=== PATIENT | female | born 1975 | race Caucasian/White ===

== ENCOUNTER 2019-11-08 08:58 | Outpatient (CLI) | payer BC, SELFPAY ==
--- NOTE | ~2019-11-08 | XR_ITS ---
EXAMINATION: XR chest 2V DATE: 11/08/2019 09:16 INDICATION: Pneumothorax. TECHNIQUE: Frontal and lateral views of the chest were obtained. COMPARISON: CT abdomen and pelvis 08/18/2013 FINDINGS: A calcified right lung nodule and calcified right hilar lymph nodes are consistent with old granulomatous disease. No pleural effusion or pneumothorax. The heart size is normal. Surgical clips in the right upper quadrant are likely from cholecystectomy. IMPRESSION: 1. No acute cardiopulmonary disease. Reviewed, dictated and finalized at location A.
== END 2019-11-08 08:59 | disposition home or self-care (01) ==
PROVIDERS: PCP Family Medicine; Visit Provider Family Medicine
DX: J93.9 Pneumothorax, unspecified (principal); J94.2 Hemothorax; S22.49XA Multiple fractures of ribs, unspecified side, initial encounter for closed fracture
CPT/HCPCS: 71046

== ENCOUNTER 2019-12-08 06:48 | Outpatient (NON) | payer BC, SELFPAY ==
[2019-12-08 19:10] LABS: SARS-CoV-2 RNA PCR Negative
== END 2019-12-08 06:49 ==
PROVIDERS: Visit Provider Family Medicine
DX: Z11.59 Encounter for screening for other viral diseases (principal)
CPT/HCPCS: 87635; C9803; U0003

== ENCOUNTER → 2019-12-29 10:13 | Outpatient (CLI) | payer BC, SELFPAY ==
--- NOTE | ~2019-12-29 | XR_ITS ---
EXAMINATION: XR foot LT min 3V DATE: 12/29/2019 10:27 INDICATION: Left foot pain. TECHNIQUE: 4 views of left foot were obtained. COMPARISON: None. FINDINGS: Bone alignment is normal. No fracture. There is mild osteoarthritis of first metatarsophala ngeal joint. There are enthesophytes at the posterior and plantar aspects of calcaneal tuberosity. IMPRESSION: 1. Mild osteoarthritis of first metatarsophalangeal joint. Reviewed, dictated and finalized at location B.
== END ==
PROVIDERS: PCP Family Medicine; Visit Provider Family Medicine
DX: M79.672 Pain in left foot (principal); M19.072 Primary osteoarthritis, left ankle and foot
CPT/HCPCS: 73630

== ENCOUNTER 2020-05-14 14:49 | Emergency (ER) | payer BC, MEDICAID, SELFPAY ==
--- NOTE | ~2020-05-14 | CT_ITS ---
EXAMINATION: CT abdomen pelvis w con DATE: 05/14/2020 16:50 INDICATION: Right lower quadrant abdominal pain. TECHNIQUE: Computed tomography (CT) of the abdomen and pelvis was performed with 100 mL Omnipaque 350 intravenous contrast. Automated exposure control and iterative reconstruction technique were employe d. The dose-length product was 1420.68 mGy-cm. COMPARISON: CT abdomen and pelvis 08/18/13 FINDINGS: The visualized portions of the lung bases demonstrate mild atelectasis. Calcified pulmonary nodules are consistent with old granulomatous disease. No pleural effusion. The heart size is normal . No pericardial effusion. The liver and spleen are normal. There are changes of cholecystectomy. The pancreas and adrenal glands are normal. There is cortical thinning of the kidneys. There are no dila cresencio loops of bowel. The appendix is normal. There are no pathologically enlarged lymph nodes. There i s no free intraperitoneal fluid. There is a dominant follicle in right ovary. There is mild thoracolu mbar spondylosis. Lumbar dextroscoliosis is noted. IMPRESSION: 1. No specific etiology for the patient's symptoms. Reviewed, dictated and finalized at location A. [employer]
[2020-05-14 15:38] VITALS: BP 129/92; PULSE 105; RESP 14; TEMP 36.1; O2SAT 99
[2020-05-14 15:58] LABS: Basophils Percent Auto 0.6 % (0.2-1.2); Eosinophils Absolute Auto 0.1 K/mm3 (0-0.3); Eosinophils Percent Auto 1.4 % (0-4.4); Hemoglobin 15.3 g/dL (12.0-15.0); Immature Granulocyte Absolute 0.06 K/mm3 (0.00-0.031); Immature Granulocyte Percent A 1.2 % (0-0.5); Lymphocytes Absolute Auto 1.79 K/mm3 (0.9-3.2); Lymphocytes Percent Auto 34.6 % (18.3-44.2); Mean Corpuscular HGB Conc 33.3 g/dl (32-36); Mean Corpuscular Hemoglobin 31.5 pg (26-34); Mean Corpuscular Volume 94.7 fl (80-100); Mean Platelet Volume 12.3 fl (7.4-10.4); Monocytes Absolute Auto 0.5 K/mm3 (0.1-0.6); Monocytes Percent Auto 9.9 % (2.6-8.5); Neutrophils Absolute Auto 2.7 K/mm3 (1.3-6.7); Neutrophils Percent Auto 52.3 % (45.5-73.1); Platelet Count Result 192 k/mm3 (150-375); Red Blood Count 4.86 M/mm3 (4.2-5.4); Red Cell Distribution Width 14.3 % (11.5-14.5); White Blood Count 5.2 K/mm3 (4.5-10.0)
[2020-05-14 16:14] LABS: Alanine Aminotransferase 42 U/L (4-35); Albumin Level 4.3 g/dL (3.5-5.1); Alkaline Phosphatase 97 U/L (38-126); Anion Gap 6 mmol/L (8-16); Aspartate Amino Transferase 40 U/L (14-36); Bilirubin,Total 0.4 mg/dL (0.2-1.3); Blood Urea Nitrogen 18 mg/dL (7-17); Calcium 8.8 mg/dL (8.4-10.2); Carbon Dioxide 28 mmol/L (22-30); Chloride 101 mmol/L (98-107); Estimated CRCL calculation 61 ml/min; Estimated Glomerular Filt Rate 41; Glucose 95 mg/dL (65-105); Lipase 54 U/L (23-300); Potassium 3.9 mmol/L (3.4-5.0); Sodium 135 mmol/L (137-145)
--- NOTE | 2020-05-14 16:18 | ED.ABDPAIN ---
HPI - Abdominal Pain General Chief Complaint: Abdominal Pain Stated Complaint: covid pos/right abd pain Time Seen by Provider: 05/14/20 16:03 Source: patient Mode of arrival: ambulatory Limitations: no limitations History of Present Illness HPI narrative: A 44-year-old female presents to the emergency department with complaints of abdominal pain, nausea and vomiting. Patient states that she was diagnosed with Covid a week or so ago and is uncertain if this is being caused by Covid or something else. She does endorse pain localized to the right lower quadrant of her abdomen. She does state that she has been nauseated but only vomited once or twice. She states the vomit was nonbilious and nonbloody. Patient endorses fevers as well but notes that she has been taking Tylenol and ibuprofen for the Covid. Related Data Home Medications Medication Instructions Recorded Confirmed hydrochlorothiazide 25 mg tablet 25 mg PO DAILY 04/04/19 05/01/20 hyoscyamine sulfate 0.125 mg 0.125 mg SUBLINGUAL QID PRN 05/30/19 05/01/20 sublingual tablet Allergies Allergy/AdvReac Type Severity Reaction Status Date / Time No Known Allergies Allergy Mild Verified 05/14/20 16:12 Review of Systems Review of Systems: Narrative: CONSTITUTIONAL: Denies fever, chills, or sweats. EYES: Denies visual changes, redness, or discharge. ENT: Denies rhinorrhea, congestion, sore throat, or otalgia. CARDIOVASCULAR: Denies chest pain, palpitations, or edema. RESPIRATORY: Denies cough or dyspnea. GASTROINTESTINAL: Endorses abdominal pain, nausea, vomiting. GENITOURINARY: Denies dysuria or hematuria. SKIN: Denies rash or itching. MUSCULOSKELETAL: Denies back pain, joint pain, or myalgia. NEUROLOGIC: Denies headache, numbness, dizziness, or weakness. PSYCHIATRIC: Denies anxiety or depression. [facility] Past Medical History Medical History Chronic low back pain with right-sided sciatica Chronic right shoulder pain Concussion with loss of consciousness <= 30 min COVID-19 Cyst of brain Encounter for screening laboratory testing for COVID-19 virus Exposure to COVID-19 virus Fever blister Foot pain, left Hemothorax, right Morbid obesity with BMI of 45.0-49.9, adult Multiple rib fractures Pneumothorax, right Right hip pain Right knee pain UTI (urinary tract infection) Family History Family History Grandparent Acute myocardial infarction Family history of malignant neoplasm Family history of congestive heart failure Sibling Acute myocardial infarction, Onset Age: 6 Mother Family history of lung disease, Onset Age: 55 Social History Social History Smoking status: Never smoker Alcohol intake: current Exam Narrative: Exam Narrative: GENERAL: Well-appearing, well-nourished, and in no acute distress. HEAD: Normocephalic, atraumatic. EYES: PERRLA and EOMI. ENT: Nares clear, no rhinorrhea or epistaxis. Mucous membranes moist. Oropharynx without tonsillar hypertrophy exudate or other lesions. Bilateral TMs pearly harp nonbulging NECK: Supple. No adenopathy or masses. No carotid bruits or JVD CHEST: Clear to auscultation. No respiratory distress. No wheezes rales or rhonchi HEART: Regular rate and rhythm. No murmur heard. Normal peripheral pulses. ABDOMEN: Obese abdomen, right lower quadrant tenderness, McBurney's point tenderness, positive rebound, positive obturator and psoas sign. EXTREMITIES: Normal range of motion. No edema. SKIN: Warm, dry, no rash. NEURO: No focal deficits. Alert and oriented x3. PSYCH: Normal mood and affect. Course Vital Signs Vital signs: Vital Signs Temperature 36.1 C L 05/14/20 15:38 Pulse Rate 105 H 05/14/20 15:38 Respiratory Rate 14 05/14/20 15:38 Blood Pressure 129/92 H 05/14/20 15:38 Pulse Oximetry 99 05/14/20
[2020-05-14 16:20] LABS: Add Urine Microscopic? NO; Appearance Urine Clear (Clear); Bilirubin Urine Negative (Negative); Blood Urine Negative (Negative); Color Urine Yellow (Yellow); Glucose Urine UA Negative (Negative); Ketones Urine Negative (Negative); Leukocyte Esterase Ur Negative LEU/UL (Negative); Nitrate Urine Negative (Negative); Protein Urine Negative (Negative); Specific Grav Ur 1.016 (1.001-1.035); Urobilinogen Urine Negative mg/dL (<2.0)
[2020-05-14] MEDS: KETOROLAC 15 MG/ML VIAL (*BKC) IV PUSH (16:21)
[2020-05-14] MEDS: MORPHINE SULFATE (*CRX) 4 MG/ML INJ IV PUSH (16:21)
[2020-05-14 17:16] VITALS: BP 125/76; PULSE 90; RESP 18; O2SAT 100
== END 2020-05-14 17:18 | disposition home or self-care (01) ==
PROVIDERS: Emergency Medicine; Emergency Provider Emergency Medicine; PCP Family Medicine
DX: U07.1 COVID-19 (principal); R11.2 Nausea with vomiting, unspecified; R10.31 Right lower quadrant pain; Z87.440 Personal history of urinary (tract) infections; E66.01 Morbid (severe) obesity due to excess calories; Z68.41 Body mass index [BMI] 40.0-44.9, adult
CPT/HCPCS: 36415; 74177; 80053; 81003; 81025; 83690; 85025; 96374; 96375; 99284; J1885; J2270; Q9967

== ENCOUNTER 2020-07-16 16:45 | Outpatient (CLI) | payer BC, SELFPAY ==
[2020-07-16 17:03] LABS: Hematocrit 40.4 % (37.0-47.0); Hemoglobin 13.4 g/dL (12.0-15.0); Mean Corpuscular HGB Conc 33.2 g/dl (32-36); Mean Corpuscular Hemoglobin 31.5 pg (26-34); Mean Corpuscular Volume 94.8 fl (80-100); Mean Platelet Volume 12.1 fl (7.4-10.4); Platelet Count Result 183 k/mm3 (150-375); Red Blood Count 4.26 M/mm3 (4.2-5.4)
== END 2020-07-16 16:46 | disposition home or self-care (01) ==
LOC: ANHLAB 16:46
PROVIDERS: PCP Family Medicine; Visit Provider Nurse Practitioner
DX: R23.3 Spontaneous ecchymoses (principal)
CPT/HCPCS: 36415; 85027

== ENCOUNTER 2021-03-04 15:49 | Emergency (ER) | payer BC, SELFPAY ==
[2021-03-04 15:59] VITALS: BP 137/100; PULSE 73; RESP 18; TEMP 36.8; O2SAT 100
--- NOTE | 2021-03-04 16:28 | ED.GENADULT ---
HPI - General Adult General Chief complaint: Burn/Smoke Inhalation Stated complaint: Burn on finger History of Present Illness HPI narrative: This is a 45-year-old woman that presents to the urgent care for a burn from a glue gun making a custom patient states that she tried to wrap it up and put triple antibiotic ointment on it but today it continues to throb and hurt. Related Data Home Medications Medication Instructions Recorded Confirmed hydroxyzine HCl 03/04/21 03/04/21 Allergies Allergy/AdvReac Type Severity Reaction Status Date / Time No Known Allergies Allergy Mild Verified 03/04/21 16:24 Review of Systems Review of Systems: Right pointer finger with a second-degree burn painful and throbbing All other symptoms are unremarkable except for what was noted PMFSH Past Medical History Medical History (Updated 03/04/21 @ 16:38 by Renetta Parisi NP) Acute non-recurrent maxillary sinusitis Chronic low back pain with right-sided sciatica Chronic right shoulder pain Concussion with loss of consciousness <= 30 min COVID-19 Cyst of brain Encounter for screening laboratory testing for COVID-19 virus Exposure to COVID-19 virus Fever blister Foot pain, left Hemothorax, right Morbid obesity with BMI of 40.0-44.9, adult Morbid obesity with BMI of 45.0-49.9, adult Multiple rib fractures Pneumothorax, right Right hip pain Right knee pain UTI (urinary tract infection) Family History Family History Grandparent Acute myocardial infarction Family history of malignant neoplasm Family history of congestive heart failure Sibling Acute myocardial infarction, Onset Age: 6 Mother Family history of lung disease, Onset Age: 55 Social History Social History Smoking status: Never smoker Alcohol intake: current Comments At time as signature, I have reviewed and agree with nursing past medical, social, surgical and family history. Please see nursing chart for further information. There is no relevant family history pertinent to the presenting complaint. Exam Narrative: GENERAL:Well-appearing, well-nourished, and in no acute distress. HEAD:Normocephalic, atraumatic. EYES: PERRLA and EOMI. ENT: Nares clear, no rhinorrhea or epistaxis. Mucous membranes moist. NECK: Supple. CHEST: Clear to auscultation. No respiratory distress. HEART: Regular rate and rhythm. ABDOMEN: Soft, nontender, nondistended, normal active bowel sounds. EXTREMITIES: Normal range of motion. No edema. Right pointer finger second-degree burn right below the nailbed sloughing noted glue on the skin that has been removed SKIN: Warm, dry, no rash. NEURO: No focal deficits. Alert and oriented x3. Course Vital Signs Vital signs: Vital Signs Temperature 98.3 F 03/04/21 15:59 Pulse Rate 73 03/04/21 15:59 Respiratory Rate 18 03/04/21 15:59 Blood Pressure 137/100 H 03/04/21 15:59 Pulse Oximetry 100 03/04/21 15:59 Temperature 98.3 F 03/04/21 15:59 Pulse Rate 73 03/04/21 15:59 Respiratory Rate 18 03/04/21 15:59 Blood Pressure 137/100 H 03/04/21 15:59 Pulse Oximetry 100 03/04/21 15:59 Medical Decision Making [facility] Narrative Medical decision making narrative: Tetanus shot given Vital Signs Vital Signs: Vital Signs Temperature 98.3 F 03/04/21 15:59 Pulse Rate 73 03/04/21 15:59 Respiratory Rate 18 03/04/21 15:59 Blood Pressure 137/100 H 03/04/21 15:59 Pulse Oximetry 100 03/04/21 15:59 Temperature 98.3 F 03/04/21 15:59 Pulse Rate 73 03/04/21 15:59 Respiratory Rate 18 03/04/21 15:59 Blood Pressure 137/100 H 03/04/21 15:59 Pulse Oximetry 100 03/04/21 15:59 Discharge Plan Discharge Clinical Impression: Essential (primary) hypertension Burn of finger of right hand, second degree Qualifiers: Encounter type: initial encou
[2021-03-04] MEDS: TETANUS,DIPHTHERIA,AC PERTUSSIS ADULT (0.5 ML) BOOSTRIX IM (16:36)
[2021-03-04] MEDS: SILVER SULFADIAZINE 1% CR 50 GM JAR (*BKC) 1 APPLIC TOPICAL (16:38)
== END 2021-03-04 16:50 | disposition home or self-care (01) ==
PROVIDERS: Emergency Provider Nurse Practitioner Family; PCP Family Medicine
DX: T23.221A Burn of second degree of single right finger (nail) except thumb, initial encounter (principal); X17.XXXA Contact with hot engines, machinery and tools, initial encounter; Z23 Encounter for immunization; Z86.16 Personal history of COVID-19; E66.01 Morbid (severe) obesity due to excess calories; Z68.41 Body mass index [BMI] 40.0-44.9, adult
CPT/HCPCS: 16020; 90471; 90715; 99213; A9270; G0463

== ENCOUNTER 2021-05-13 15:30 | Emergency (ER) | payer BC, SELFPAY ==
--- NOTE | ~2021-05-13 | XR_ITS ---
EXAMINATION: XR foot LT min 3V EXAM DATE: 05/13/2021 16:27 INDICATION: Left foot pain dorsally. Initial encounter. TECHNIQUE: Left foot dorsoplantar, lateral and oblique projections obtained and reviewed. Comparison is made to prior examination from 12/29/2019. FINDINGS: Left metatarsal bones unremarkable. Small posterior, inferior calcaneal spurs. There are no acute fractures or dislocations identified. There is no subcutaneous gas. The soft tissue is un remarkable. There are no radiopaque foreign bodies. IMPRESSION: 1. XR foot LT min 3V exam without acute osseous findings. Reviewed, dictated and finalized at location A. SORTER
[2021-05-13 16:06] VITALS: BP 110/74; PULSE 87; RESP 18; TEMP 37.6; O2SAT 98
--- NOTE | 2021-05-13 16:44 | ED.LOWEXIN ---
HPI - Extremity Injury (Lower) General Chief Complaint: Extremity Injury, Lower Stated Complaint: left foot pain Time Seen by Provider: 05/13/21 16:43 Source: patient Mode of arrival: ambulatory Limitations: no limitations History of Present Illness HPI Narrative: 45-year-old female presented for complaint of left foot pain, onset yesterday after injury when a stool fell on her foot. Has been icing and elevating and taking ibuprofen but states the swelling has increased. Related Data Home Medications Medication Instructions Recorded Confirmed hydroxyzine HCl 03/04/21 03/04/21 galcanezumab-gnlm [Emgality Pen] 2 mg SUBCUT DIRECTED 05/13/21 05/13/21 Allergies Allergy/AdvReac Type Severity Reaction Status Date / Time No Known Allergies Allergy Mild Verified 05/13/21 16:14 Review of Systems Review of Systems: CONSTITUTIONAL: Denies body aches, fever, chills, or sweats. EYES: Denies visual changes, redness, or discharge. CARDIOVASCULAR: Denies chest pain, palpitations, or edema. RESPIRATORY: Denies cough or dyspnea. GASTROINTESTINAL: Denies abdominal pain, nausea, vomiting, or diarrhea. GENITOURINARY: Denies dysuria or hematuria. SKIN: Denies rash, itching, or wounds. MUSCULOSKELETAL: Endorses left foot pain/swelling. Denies back pain, joint pain, or myalgia. NEUROLOGIC: Denies headache, numbness, tingling, or weakness. PSYCH: Denies depression or anxiety. [facility] Past Medical History Medical History Acute non-recurrent maxillary sinusitis Chronic low back pain with right-sided sciatica Chronic right shoulder pain Concussion with loss of consciousness <= 30 min COVID-19 Cyst of brain Encounter for screening laboratory testing for COVID-19 virus Exposure to COVID-19 virus Fever blister Foot pain, left Hemothorax, right Morbid obesity with BMI of 40.0-44.9, adult Morbid obesity with BMI of 45.0-49.9, adult Multiple rib fractures Pneumothorax, right Right hip pain Right knee pain UTI (urinary tract infection) Family History Family History Grandparent Acute myocardial infarction Family history of malignant neoplasm Family history of congestive heart failure Sibling Acute myocardial infarction, Onset Age: 6 Mother Family history of lung disease, Onset Age: 55 Social History Social History Smoking status: Never smoker Alcohol intake: current Comments At time of signature, I have reviewed and agree with nursing past medical, surgical, social and family history unless otherwise noted. Please see nursing chart for further information. There is no relevant family history pertinent to the presenting complaint Exam Narrative: GENERAL: Well-appearing, well-nourished, and in no acute distress. HEAD: Normocephalic, atraumatic. EYES: EOMI. No redness or drainage. Conjunctivae normal. NECK: Normal AROM. Supple. CHEST: No respiratory distress. Clear to auscultation. HEART: Regular rate and rhythm. No murmur appreciated. Normal peripheral pulses. ABDOMEN: Soft, nontender, nondistended, normal active bowel sounds. MUSCULOSKELETAL: left foot contusion dorsal surface, PPP, pain with light palpation EXTREMITIES: Normal range of motion. No edema. SKIN: Warm, dry, no rash. Capillary refill normal. Normal skin turgor. NEURO: No focal deficits. Alert and oriented x3. Gait steady. PSYCH: Normal affect. No signs of depression or anxiety. Course Course Emergency Course: xray Reviewed with patient Patient is aware of diagnosis, understands and agrees to treatment plan. Anticipatory guidance given. Patient agrees to follow-up as directed and is aware of reasons to seek care at the emergency department. Portions of this record may have been created with voice recognition software Level of Care: Scancell
== END 2021-05-13 16:54 | disposition home or self-care (01) ==
PROVIDERS: Emergency Provider Nurse Practitioner Family; PCP Family Medicine
DX: S90.32XA Contusion of left foot, initial encounter (principal); W20.8XXA Other cause of strike by thrown, projected or falling object, initial encounter; Z86.16 Personal history of COVID-19; E66.01 Morbid (severe) obesity due to excess calories; Z68.41 Body mass index [BMI] 40.0-44.9, adult
CPT/HCPCS: 73630; 99213; G0463

== ENCOUNTER → 2021-07-03 11:16 | Outpatient (CLI) | payer BC, SELFPAY ==
--- NOTE | ~2021-07-03 | XR_ITS ---
XR knee LT 3V 07/03/2021 11:29 INDICATION: Left knee pain PROCEDURE: 3 views left knee COMPARISON: No prior studies for comparison. FINDINGS: Fracture, dislocation or subluxation is not identified. Small joint effusion. The soft tiss ues appear within normal limits. No foreign bodies are identified. IMPRESSION: 1: Small joint effusion. Reviewed, dictated and finalized at location A. DIRECTOR IMPRESSION: 1: Small joint effusion.
== END ==
PROVIDERS: PCP Family Medicine; Visit Provider Family Medicine
DX: M25.562 Pain in left knee (principal); M25.462 Effusion, left knee
CPT/HCPCS: 73562

== ENCOUNTER 2021-11-11 00:27 | Day surgery (SDC) | payer BC, OTHER, SELFPAY ==
--- NOTE | 2021-11-11 08:31 | WPDANESEPPF ---
Anes - Initial Pre Proc Eval Procedure: Operation Date: 11/11/21 10:30 Proposed Procedures p Screening Colonoscopy - Yogi Ignacio MD Date/Time: 11/11/21 08:31 Surgeon: Yogi Ignacio MD Pre Op Diagnosis: neoplasm screening Patient Data Age: 46 Gender: F Height: Weight: Allergies Allergy/AdvReac Type Severity Reaction Status Date / Time No Known Allergies Allergy Mild Verified 11/11/21 08:59 Home Medications Medication Instructions Recorded Confirmed Type topiramate 50 mg tablet (Topamax) 50 mg PO BID #60 tabs 04/22/21 11/11/21 Rx galcanezumab-gnlm 120 mg/mL 2 mg subcut DIRECTED 05/13/21 11/11/21 History subcutaneous pen injector (Emgality Pen) meloxicam 15 mg tablet 15 mg PO DAILY PRN pain #90 tabs 05/20/21 11/11/21 Rx folic acid 1 mg tablet 1 mg PO DAILY 07/03/21 11/11/21 History sertraline 100 mg tablet 100 mg PO . b.i.d. #180 tabs 07/03/21 11/11/21 Rx sumatriptan succinate 100 mg tablet See Rx Instructions PO .COMPLEX 07/03/21 11/11/21 History cyclobenzaprine 5 mg tablet 5 mg PO TID PRN Muscle Spasticity 07/10/21 11/11/21 History ondansetron HCl 8 mg tablet 8 mg PO Q8H PRN nausea and 07/10/21 11/11/21 Rx vomiting #30 tabs allopurinol 300 mg tablet 300 mg PO BID #180 tabs 08/05/21 11/11/21 Rx zolpidem 10 mg tablet (Ambien) 10 mg PO . Q.h.s. PRN insomnia 08/16/21 11/11/21 Rx #90 tabs metoprolol tartrate 50 mg tablet 50 mg PO Q12H #180 tabs 10/10/21 11/11/21 Rx Patient hx anesthesia problems: none Family hx anesthesia problems: none Results Review: All pre-operative results and documents have been reviewed as part of the pre-operative evaluation. [facility] Past Medical History Medical History (Updated 11/11/21 @ 08:31 by Adam Mckeon DO) Acute non-recurrent maxillary sinusitis Anxiety Breast cancer screening by mammogram normal mammogram 06/13/2021 Chronic low back pain with right-sided sciatica Chronic pain of left knee (~06/2021) X-ray on 07/03/2021 with small joint effusion but otherwise negative. Chronic right shoulder pain Collapse of right lung Concussion with loss of consciousness <= 30 min COVID-19 (~05/12/20) COVID-19 (05/20/21) 2nd episode testing positive 05/21/2021 Cyst of brain Depression Encounter for screening laboratory testing for COVID-19 virus Exposure to COVID-19 virus Fever blister Folic acid deficiency (03/16/21) level low at 4.7 on 03/16/2021 Foot pain, left Hemothorax, right Mild renal insufficiency (03/16/21) BUN 24 with creatinine 1.36 with GFR 47 on 03/16/2021 Mixed hyperlipidemia (03/16/21) total cholesterol 231, triglycerides 88, HDL 64, LDL 148 on 03/16/2021 Morbid obesity with BMI of 40.0-44.9, adult Morbid obesity with BMI of 45.0-49.9, adult Multiple rib fractures Pneumothorax, right Right hip pain Right knee pain UTI (urinary tract infection) Surgical History Surgical History History of History of partial hysterectomy History of tonsillectomy Hx of cholecystectomy Family History Family History Grandparent Acute myocardial infarction Family history of malignant neoplasm Family history of congestive heart failure Sibling Acute myocardial infarction, Onset Age: 6 Mother Family history of lung disease, Onset Age: 55 Hypertension Father Asthma Hypertension Daughter Family history of leukemia Other Heart disease Social History Social History Smoking status: Never smoker Alcohol intake: current Drinks per week: 2 Substance use: never Substance use type: does not use Living arrangements: with family Additional occupation/education comments: Building Aide Gender identity (if verbalized by the patient): Female Spiritual care concerns: No
[2021-11-11 08:59] VITALS: BMI 45.9
[2021-11-11 09:00] VITALS: BP 120/68; PULSE 81; RESP 18; TEMP 36.3; O2SAT 98
[2021-11-11] MEDS: LACTATED RINGERS 1,000 ML 150 ML IV CONT (09:02)
--- NOTE | 2021-11-11 09:37 | PM.HPGS ---
History of Present Illness History of Present Illness Consent: Risks, benefits, and alternatives have been discussed and questions answered. Patient agrees to proceed with procedure. Chief complaint: neoplasm screening Narrative: Brianne Caldwell is a 46 year old female here for first screening colonoscopy Review of Systems Constitutional: Constitutional: Denies headache(s) and Denies weakness Eyes: Eyes: Denies blurry vision ENT: Reports Normal hearing present, Denies headache(s) and Denies neck pain Cardiovascular: Cardiovascular: Denies chest pain and Denies dyspnea Respiratory: Respiratory: Denies dyspnea Gastrointestinal: Gastrointestinal: Reports no additional gastrointestinal complaints Genitourinary: Genitourinary: Denies dysuria Musculoskeletal: Musculoskeletal: Denies neck pain Integumentary/Breasts: Skin/Breast: Denies dry skin Neurologic: Reports Normal hearing present, Denies headache(s) and Denies weakness Psychiatric: Psychiatric: Denies anxiety Endocrine: Endocrine: Denies change in body appearance Hematologic/Lymphatic: Hematologic/Lymphatic: Denies easy bleeding Allergic/Immunologic: Allergic/Immunologic: Denies urticaria [facility] Past Medical History Medical History (Updated 11/11/21 @ 09:38 by Yogi Ignacio MD) Acute non-recurrent maxillary sinusitis Anxiety Breast cancer screening by mammogram normal mammogram 06/13/2021 Chronic low back pain with right-sided sciatica Chronic pain of left knee (~06/2021) X-ray on 07/03/2021 with small joint effusion but otherwise negative. Chronic right shoulder pain Collapse of right lung Colon cancer screening Concussion with loss of consciousness <= 30 min COVID-19 (~05/12/20) COVID-19 (05/20/21) 2nd episode testing positive 05/21/2021 Cyst of brain Depression Encounter for screening laboratory testing for COVID-19 virus Exposure to COVID-19 virus Fever blister Folic acid deficiency (03/16/21) level low at 4.7 on 03/16/2021 Foot pain, left Hemothorax, right Mild renal insufficiency (03/16/21) BUN 24 with creatinine 1.36 with GFR 47 on 03/16/2021 Mixed hyperlipidemia (03/16/21) total cholesterol 231, triglycerides 88, HDL 64, LDL 148 on 03/16/2021 Morbid obesity with BMI of 40.0-44.9, adult Morbid obesity with BMI of 45.0-49.9, adult Multiple rib fractures Pneumothorax, right Right hip pain Right knee pain UTI (urinary tract infection) Surgical History Surgical History History of History of partial hysterectomy History of tonsillectomy Hx of cholecystectomy Family History Family History Grandparent Acute myocardial infarction Family history of malignant neoplasm Family history of congestive heart failure Sibling Acute myocardial infarction, Onset Age: 6 Mother Family history of lung disease, Onset Age: 55 Hypertension Father Asthma Hypertension Daughter Family history of leukemia Other Heart disease Social History Social History Smoking status: Never smoker Alcohol intake: current Drinks per week: 2 Substance use: never Substance use type: does not use Living arrangements: with family Additional occupation/education comments: Building Aide Gender identity (if verbalized by the patient): Female Spiritual care concerns: No Meds Home Medications and Allergies Home Medications Medication Instructions Recorded Confirmed Type topiramate 50 mg tablet (Topamax) 50 mg PO BID #60 tabs 04/22/21 11/11/21 Rx galcanezumab-gnlm 120 mg/mL 2 mg subcut DIRECTED 05/13/21 11/11/21 History subcutaneous pen injector (Emgality Pen) meloxicam 15 mg tablet 15 mg PO DAILY PRN pain #90 tabs 05/20/21 11/11/21 Rx folic acid 1 mg tablet 1 mg PO DAILY 07/03/21 11/11/21
[2021-11-11 09:57] VITALS: BP 110/76; PULSE 81; RESP 20; O2SAT 98
[2021-11-11 10:07] VITALS: BP 116/80; PULSE 66; RESP 20; O2SAT 100
[2021-11-11 10:17] VITALS: BP 121/90; PULSE 64; RESP 20; O2SAT 97
== END 2021-11-11 10:20 | disposition home or self-care (01) ==
PROVIDERS: PCP Family Medicine; Visit Provider Internal Medicine Gastroenterology
PROC: 0DJD8ZZ Inspection of Lower Intestinal Tract, Via Natural or Artificial Opening Endoscopic (ICD-10-PCS; CPT 45378; principal; 2021-11-11 10:30)
DX: Z12.11 Encounter for screening for malignant neoplasm of colon (principal); K64.8 Other hemorrhoids; E78.2 Mixed hyperlipidemia; F41.9 Anxiety disorder, unspecified; F32.A Depression, unspecified; Z86.16 Personal history of COVID-19; E66.01 Morbid (severe) obesity due to excess calories; Z68.42 Body mass index [BMI] 45.0-49.9, adult
CPT/HCPCS: 45378; J2704; J7120

== ENCOUNTER → 2023-07-22 09:16 | Outpatient (REF) | payer BC, SELFPAY | LOC: ANHLAB 09:16 | PROVIDERS: PCP Family Medicine; Visit Provider Plastic Surgery | DX: C44.719 Basal cell carcinoma of skin of left lower limb, including hip (principal) | CPT/HCPCS: 88305 ==